=== PATIENT | male | born 2000 | race Caucasian/White ===

== ENCOUNTER 2018-07-03 18:05 | Emergency (ER) | payer OTHER ==
[2018-07-03] MEDS ORDERED: NS 0.9% 1000 ML* 1,000 ML IV ONE (18:55)
[2018-07-03] MEDS ORDERED: Ondansetron TAB* 4 MG PO ONE (18:56)
--- NOTE | 2018-07-03 18:56 | ED ---
Neurological HPI - HPI Summary HPI Summary: Patient is a 18-year-old male who presents emergency department for a vague complaint of confusion 2 days. Patient is a student [employer]. Patient states he smoked marijuana 2 days ago and since has felt disoriented and feels his thoughts are unorganized. Patient denies any head injuries. He denies other drug or alcohol use. Patient states that several other people who use marijuana had similar symptoms but there is resolved. Patient states that today his symptoms are improving. He also does note an episode of nausea and vomiting as well as diarrhea. Currently denies headache, abdominal pain, fever , respiratory symptoms, chest pain, shortness of breath, numbness, tingling or weakness. Denies past medical history. Symptoms are [id number] in severity. No current modifying factors. - History of Current Complaint Chief Complaint: EDGeneral Stated Complaint: CONFUSION Time Seen by Provider: 07/03/18 18:27 Hx Obtained From: Patient Pain Intensity: 0 - Allergy/Home Medications Allergies/Adverse Reactions: Allergies Allergy/AdvReac Type Severity Reaction Status Date / Time amoxicillin Allergy Rash Verified 07/03/18 18:16 Penicillins Allergy Rash Verified 07/03/18 18:16 Home Medications: Home Medications NK [No Home Medications Reported] 07/03/18 [History Confirmed 07/03/18] PMH/Surg Hx/FS Hx/Imm Hx Previously Healthy: Yes Infectious Disease History: No Infectious Disease History: Denies: Traveled Outside the [place] in Last 30 Days - Family History Known Family History: Positive: Other - Noncontributory - Social History Occupation: Student Lives: Dormitory/Roommates Alcohol Use: Weekly Alcohol Amount: weekends Substance Use Type: Reports: Marijuana Smoking Status (MU): Never Smoked Tobacco Review of Systems Constitutional: Negative Negative: Fever, Chills Eyes: Negative ENT: Negative Cardiovascular: Negative Negative: Palpitations, Chest Pain Respiratory: Negative Negative: Shortness Of Breath, Cough Positive: Vomiting, Diarrhea, Nausea. Negative: Abdominal Pain Genitourinary: Negative Musculoskeletal: Negative Skin: Negative Negative: Headache, Weakness, Paresthesia, Numbness Positive: Anxious All Other Systems Reviewed And Are Negative: Yes Physical Exam Triage Information Reviewed: Yes Vital Signs On Initial Exam: Initial Vitals Temp Pulse Resp BP Pulse Ox 98.5 F 83 16 114/69 100 07/03/18 18:16 07/03/18 18:16 07/03/18 18:16 07/03/18 18:16 07/03/18 18:16 Vital Signs Reviewed: Yes Appearance: Positive: Well-Appearing - Pt. lying in bed in NAD. Friends present. Skin: Positive: Warm, Dry Head/Face: Positive: Normal Head/Face Inspection Eyes: Positive: Normal, EOMI, YAMILET, Conjunctiva Clear ENT: Positive: Normal ENT inspection, Pharynx normal, TMs normal Neck: Positive: Supple Respiratory/Lung Sounds: Positive: Clear to Auscultation, Breath Sounds Present Cardiovascular: Positive: Normal, RRR Abdomen Description: Positive: Nontender, Soft Musculoskeletal: Positive: Normal, Strength/ROM Intact Neurological: Positive: Normal, Sensory/Motor Intact, Alert, Oriented to Person Place, Time, CN Intact II-III, Finger to Nose - normal, Facial Symmetry, Speech Normal. Negative: Cerebellar Dysfunction, Disoriented, Facial Droop, Slurred Speech, Pronator Drift Present Psychiatric: Positive: Affect/Mood Appropriate - Universal Coma Scale Best Eye Response: 4 - Spontaneous Best Motor Response: 6 - Obeys Commands Best Verbal Response: 5 - Oriented Coma Scale Total: 15 Diagnostics - Vital Signs Vital Signs Temp Pulse Resp BP Pulse Ox 07/03/18 18:16 98.5 F 83 16 114/69 100 - Laboratory Result Diagrams: 07/03/18 19:04 07/03/18 19:04 Lab Statement: Any lab studies that have been ordered have been reviewed, and results considered in the medical decision making process. Course/Dx - Course Course Of Treatment: Patient presenting to the ER with complaints of subjective confusion after smoking marijuana 2 days ago. He has a normal neurological exam is well appearing. He also complains of an episode of vomiting and diarrhea, denies abdominal pain has benign abdominal exam and the ER. We'll check basic labs and give patient IV fluids and Zofran. Blood work is unremarkable. Case was discussed with Dr. Ho who agrees no imaging is needed at this time. Results were discussed. Advised patient to follow up with [facility] clinic on Thursday if symptoms persist. Advised increase fluids and rest. To return to the ear symptoms change or worsen. Advised to avoid drug or alcohol use. Patient understands and agrees with plan. - Differential Dx Differential Diagnoses Neuro: Positive: Anxiety, Drug Toxicity - Diagnoses Provider Diagnoses: Cannabis use disorder, mild, abuse, Confusion Discharge - Sign-Out/Discharge Documenting (check all that apply): Patient Departure - Discharge Plan Condition: Good Disposition: HOME Patient Education Materials: Polysubstance Abuse (ED), Fatigue (ED) Referrals: [facility] [Provider Group] No Primary Care Phys,[facility] [Primary Care Provider] - Additional Instructions: Schedule a follow up appointment with the [facility] clinic on Thursday Increase fluids and rest Avoid drug or alcohol use Return to ER if symptoms change or worsen - Billing Disposition and Condition Condition: GOOD Disposition: Home
[2018-07-03 19:15] LABS: ABS Basophils 0 10^3/ul (0-0.2); ABS Eosinophils 0.1 10^3/ul (0-0.6); ABS Lymphocytes 2.1 10^3/ul (1.0-4.8); ABS Monocytes 0.9 10^3/ul (0-0.8); ABS Neutrophils 5.7 10^3/ul (1.5-7.7); ABS Nucleated RBC 0 10^3/ul; Hematocrit 43 % (42-52); Lymphocyte % 23.6 % (25-47); Mean Corpuscular HGB Conc 35 g/dl (31-36); Mean Corpuscular Hemoglobin 32 pg (27-31); Mean Corpuscular Volume 93 fL (80-94); Mean Platelet Volume 6.7 um3 (7.4-10.4); Nucleated Red Blood Cells % 0; Platelet Count 277 10^3/ul (150-450); Red Blood Count 4.68 10^6/ul (4.00-5.40); Red Cell Distribution Width 13 % (10.5-15); White Blood Count 8.9 10^3/ul (3.5-10.8)
[2018-07-03 19:30] LABS: EGFR Non-African American 114.9 (>60)
[2018-07-03 21:27] VITALS: BP 122/74
== END 2018-07-03 21:26 | disposition home or self-care (01) ==
LOC: ED 18:05
DX: F12.10 Cannabis abuse, uncomplicated (principal); R41.0 Disorientation, unspecified; Z88.0 Allergy status to penicillin
CPT/HCPCS: 36415; 80053; 83735; 85025; 96360; 99283; A9270-GY